=== PATIENT | female | born 1980 | race Caucasian/White ===

== ENCOUNTER 2017-09-01 20:33 | Emergency (ER) | payer MEDICAID ==
[2017-09-01] MEDS: DEXAMETHASONE 10 MG/ML 1 ML INJ IM (23:41)
[2017-09-01] MEDS: ALBUTEROL 0.083% (NEB) 2.5 MG/3 ML AMP HHN (23:52)
[2017-09-01] MEDS: IPRATROPIUM (NEB) 0.5 MG/2.5 ML AMP HHN (23:52)
== END 2017-09-02 00:57 | disposition home or self-care (01) ==
LOC: FTE 09-02 00:57
DX: R05 Cough (principal); J45.909 Unspecified asthma, uncomplicated
CPT/HCPCS: 94664; 96372; 99284-25

== ENCOUNTER 2018-03-06 13:57 | Emergency (ER) | payer MEDICAID ==
[2018-03-06 15:44] LABS: URINE BLOOD (Dip) POC 2+ (NEGATIVE); URINE GLUCOSE (Dip) POC Negative (NEGATIVE); URINE KETONES (Dip) POC Trace (NEGATIVE); URINE LEUKOCYTE EST (Dip) POC Negative (NEGATIVE); URINE NITRITE (Dip) POC Negative (NEGATIVE); URINE TOTAL PROTEIN POC Negative (NEGATIVE)
[2018-03-06] MEDS: KETOROLAC 30 MG INJ IM (15:47)
== END 2018-03-06 16:47 | disposition home or self-care (01) ==
LOC: FTE 13:57
DX: S39.92XA Unspecified injury of lower back, initial encounter (principal); J45.909 Unspecified asthma, uncomplicated; X58.XXXA Exposure to other specified factors, initial encounter; Y92.9 Unspecified place or not applicable
CPT/HCPCS: 72100; 81003; 81025; 96372; 99284-25

== ENCOUNTER 2018-06-10 19:53 | Emergency (ER) | payer MEDICAID ==
[2018-06-10 21:40] LABS: ADD MAN DIFF? NO
[2018-06-10 21:51] LABS: BASOPHIL # 0.1 10^3/ul (0.0-0.1); BASOPHILS % 0.8 % (0.0-2.0); EOSINOPHILS # 0.1 10^3/ul (0.0-0.5); EOSINOPHILS % 1.1 % (0.0-7.0); HEMATOCRIT 39.3 % (37.0-47.0); HEMOGLOBIN 13.1 g/dl (12.0-16.0); LYMPHOCYTES % 32.2 % (15.0-51.0); MEAN CORPUSCULAR HEMOGLOBIN 29.8 pg (29.0-33.0); MEAN CORPUSCULAR HGB CONC 33.3 g/dl (32.0-37.0); MEAN CORPUSCULAR VOLUME 89.5 fl (82.0-101.0); MEAN PLATELET VOLUME 10.9 fl (7.4-10.4); MONOCYTE # 0.6 10^3/ul (0.3-0.9); MONOCYTES % 4.4 % (0.0-11.0); NEUTROPHIL # 7.7 10^3/ul (1.6-7.5); NEUTROPHILS % 61.3 % (39.0-77.0); PLATELET COUNT 338 10^3/UL (140-415); RED BLOOD COUNT 4.39 10^6/ul (4.20-5.40); RED CELL DISTRIBUTION WIDTH 12.2 % (11.5-14.5)
[2018-06-10 21:51] LABS: WHITE BLOOD COUNT 12.5 10^3/ul (4.8-10.8)
[2018-06-10 21:53] LABS: ADD UMIC YES; UR ASCORBIC ACID NEGATIVE (NEGATIVE); UR BACTERIA FEW /HPF (NONE SEEN); UR BILIRUBIN (Dip) NEGATIVE (NEGATIVE); UR BLOOD (Dip) 2+ mg/dL (NEGATIVE); UR CLARITY SLIGHTLY CLOUDY (CLEAR); UR COLOR YELLOW (YELLOW); UR GLUCOSE (Dip) NEGATIVE (NEGATIVE); UR KETONES (Dip) NEGATIVE (NEGATIVE); UR LEUKOCYTE ESTERASE (Dip) TRACE Leu/ul (NEGATIVE); UR MUCUS FEW /HPF (NONE SEEN); UR NITRITE (Dip) NEGATIVE (NEGATIVE); UR RBC 16 /HPF (0-5); UR SPECIFIC GRAVITY (Dip) 1.016 (1.003-1.030); UR TOTAL PROTEIN (Dip) NEGATIVE (NEGATIVE); UR UROBILINOGEN (Dip) NEGATIVE (NEGATIVE); UR WBC 10 /HPF (0-5)
[2018-06-10 22:10] LABS: ANION GAP 11 (5-13); BLOOD UREA NITROGEN 10 mg/dl (7-20); CALCIUM 9.2 mg/dl (8.4-10.2); CARBON DIOXIDE 20 mmol/L (21-31); CHLORIDE 108 mmol/L (97-110); CREATININE 0.61 mg/dl (0.44-1.00); Estimated GFR > 60 mL/min (>60); GLUCOSE 89 mg/dl (70-220); POTASSIUM 3.9 mmol/L (3.5-5.1); SODIUM 139 mmol/L (135-144)
[2018-06-10 22:41] LABS: INR 0.92; PROTIME 12.4 Sec (11.9-14.9)
[2018-06-10 22:42] LABS: PARTIAL THROMBOPLASTIN TIME 31.7 Sec (23.0-35.0)
== END 2018-06-10 23:26 | disposition home or self-care (01) ==
LOC: FTE 19:53
DX: N93.8 Other specified abnormal uterine and vaginal bleeding (principal); J45.909 Unspecified asthma, uncomplicated
CPT/HCPCS: 36415; 76830; 76856; 80048; 81001; 81025; 85025; 85610; 85730; 87086; 99284-25

== ENCOUNTER 2018-10-18 18:55 | Emergency (ER) | payer MEDICAID ==
[2018-10-19] MEDS: ALBUTEROL 0.5% (NEB) 2.5 MG/0.5 ML AMP INH (00:12)
[2018-10-19] MEDS: IPRATROPIUM (NEB) 0.5 MG/2.5 ML AMP NEB (00:13)
[2018-10-19] MEDS: DEXAMETHASONE 10 MG/ML 1 ML INJ IM (00:55)
== END 2018-10-19 01:59 | disposition home or self-care (01) ==
LOC: FTE 10-19 01:59
DX: J45.901 Unspecified asthma with (acute) exacerbation (principal); J20.9 Acute bronchitis, unspecified
CPT/HCPCS: 71045; 94644; 96372; 99284-25

== ENCOUNTER 2019-01-12 01:18 | Emergency (ER) | payer MEDICAID ==
[2019-01-12] MEDS: KETOROLAC 30 MG INJ IM (05:36)
[2019-01-12] MEDS: CYCLOBENZAPRINE 10 MG TAB PO (05:36)
== END 2019-01-12 07:24 | disposition home or self-care (01) ==
LOC: FTE 07:24
DX: M54.2 Cervicalgia (principal); M62.838 Other muscle spasm; J45.909 Unspecified asthma, uncomplicated; R51 Headache
CPT/HCPCS: 70450; 71046; 72125; 81025; 93005; 96372; 99285-25